=== PATIENT | female | born 1985 ===

== ENCOUNTER 2016-05-31 08:35 | Inpatient (IN) ==
[2016-05-31] MEDS ORDERED: CITRIC ACID/SODIUM CITRATE 30 ML UDCUP PO ONE (09:08)
[2016-05-31] MEDS ORDERED: ceFAZolin 2,000 MG in PREMIX 1 EACH IV ONE (09:08)
[2016-05-31] MEDS ORDERED: FAMOTIDINE 20 MG/2 ML VIAL IV ONE (09:08)
[2016-05-31] MEDS ORDERED: LACTATED RINGERS 1,000 ML IV ONE (09:12)
[2016-05-31] MEDS ORDERED: OXYTOCIN 10 UNIT/ML VIAL IM ONE (09:13)
[2016-05-31] MEDS ORDERED: OXYTOCIN/LR 30 UNIT/1,000 ML BAG IV ONE (09:14)
[2016-05-31 09:21] LABS: Apearance,Urine Slightly Hazy (Clear); Bilirubin,Urine Negative (Negative); Blood, Urine Negative (Negative); Glucose,Urine (UA) Negative (Negative); Ketones,Urine 5 mg/dL (Negative); Mucus,Urine Many /LPF (Occasional); Nitrite,Urine Negative (Negative); Protein,Urine 30 MG/DL; RBC,Urine 1 /HPF (0-4); Squamous Epithelial Cell,Urine Occasional /HPF (0-10); Urine Color Yellow (Yellow); Urine Specific Gravity 1.025 (1.001-1.035); Urine Urobilinogen < 2.0 EU/DL (0.2-1.0); WBC,Urine 1 /HPF (0-6)
[2016-05-31] MEDS ORDERED: LACTATED RINGERS 1,000 ML IV SCH ×2 (09:30→14:30)
[2016-05-31 09:34] LABS: Basophils % 0.2 % (0.0-0.8); Eosinophils % 0.3 % (0.00-10.9); Hematocrit 38.6 VOL% (35.7-47.0); Immature Granulocytes % 0.5 %; Immature Granulocytes Absolute 0.03 #; Lymphocytes # 1.3 10*3/uL (1.4-4.0); Lymphocytes % 20.8 % (21.3-54.2); Mean Corpuscular HGB Conc 33.7 GM/DL (32-36); Mean Corpuscular Hemoglobin 32 PG (27-34); Mean Corpuscular Volume 95.3 FL (87-102); Mean Platelet Volume 12.6 FL (9.6-12.0); Monocytes # 0.5 10*3/uL (0.11-0.8); Neutrophils # 4.5 10*3/uL (1.4-7.4); Neutrophils % 70.2 % (38.7-73.9); Platelet Count 147 10*3/uL (130-400); Red Blood Count 4.05 10*6/uL (3.8-5.5); Red Cell Distribution Width 12.9 % (9.3-17.3); White Blood Count 6.3 10*3/uL (4.5-13.71)
[2016-05-31] MEDS ORDERED: INFLUENZA VIRUS VACCINE 0.5 ML SYRINGE IM ONE (10:00)
[2016-05-31 10:15] LABS: Alanine Aminotransferase 17 U/L (13-56); Albumin 2.6 G/DL (3.4-5.0); Alkaline Phosphatase 160 U/L (45-117); Aspartate Amino Transferase 21 U/L (0-37); Bilirubin,Total < 0.39 MG/DL (0.2-1.0); Blood Urea Nitrogen 8 MG/DL (7-18); Calcium 8.8 MG/DL (8.5-10.1); Glucose 109 MG/DL (74-106); Osmolality,Calculated 284.8 MOS/KG (273-304); Potassium 4.3 MMOL/L (3.5-5.1); Sodium 144 MMOL/L (136-145); Total Protein 6.4 G/DL (6.4-8.3)
[2016-05-31] MEDS ORDERED: ONDANSETRON 4 MG/2 ML VIAL ONE (12:35)
[2016-05-31] MEDS ORDERED: PHENYLEPHRINE 1 MG/10 ML SYRINGE IV ONE (12:35)
[2016-05-31] MEDS ORDERED: fentaNYL 100 MCG/2 ML VIAL ONE (13:33)
[2016-05-31] MEDS ORDERED: ePHEDrine 50 MG/ML AMP ONE (13:34)
[2016-05-31] MEDS ORDERED: MORPHINE 10 MG/10 ML VIAL ONE (13:34)
[2016-05-31 13:39] LABS: Cord Arterial Blood HCO3 20.6 MMOL/L
[2016-05-31 13:41] LABS: Cord Venous Blood HCO3 22.2 MMOL/L; Cord Venous Blood PCO2 51.6 MMHG; Cord Venous Blood PO2 27.3
--- NOTE | 2016-05-31 14:21 | OB/GYN History & Physical ---
History of Present Illness Chief complaint: 38 weeks and 5 days questionable rupture membranes, pelvic pain History of present illness: Ms. Werner is a 30 year old female 6 para 3 living 2 with one patient presents with questionable leaking of fluid irregular uterine contraction and lower pelvic pain. This patient is also previous section 2. On admission heart tones were category 1, there was no evidence of any leaking. She was examined in the office prior to the hospitalization today for the same similar problems. In light of these findings with the lower pelvic pain and questionable ruptured we'll admit this patient and perform a repeat section 3. Home Medications Medication Instructions Recorded Confirmed Type No Known Home Medications [No 05/31/16 05/31/16 History Known Home Medications] Allergies Allergy/AdvReac Type Severity Reaction Status Date / Time No Known Allergies Allergy Verified 05/31/16 09:08 Medical,Surgical,& Family Hx - Medical History Neurology: History of: Seizures ( PT DOES NOT REMEMBER BEIING MEDS) Reproductive: History of: Abnormal Pap Smear, Ovarian Cysts - Surgical History Reproductive Surgeries: Surgical HX of;: Section (X2), Dilation and Curettage (X1) - Family History Family History: Reports;: Family Cancer (GF), Family Diabetes (GRANDPARENTS), Family Hypertension (PARENTS GRANDPARENTS), Family Stroke (GRANDPARENTS) Denies;: Family Anesthesia Reaction, Family Heart Disease, Family Hematology , Family Psychiatric Problems - Social History Smoking Status: Never smoker Frequency of Alcohol Use: None 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 - Constitutional General appearance: mild distress - Antepartum / Post Antpartum Exam Cervix -Dilatation: 1 cm, positive vaginal discharge, -3 station - Head Head exam: Present: normal inspection - Eye Eye exam: Present: EOMI Pupils: Present: JANNETTE - ENT ENT exam: Present: normal exam - Neck Neck exam: Present: normal inspection - Respiratory Respiratory exam: Present: clear to auscultation bilaterally - Breast Breasts: as per HPI Menstruation: as per HPI - Cardiovascular Cardiovascular exam: Present: regular rate and rhythm - GI/Abdominal GI/Abdominal exam: Present: normal bowel sounds - Extremities Exam Extremities exam: Present: normal inspection - Back Exam Back exam: Present: normal inspection - Neurological Exam Neurological exam: Present: alert, oriented X3 - Psychiatric Psychiatric exam: Present: normal affect - Skin Skin exam: Present: normal color Assessment and Plan (1) Premature rupture of membranes (PROM) affecting sixth Status: Acute Assessment and plan: Previous section, 38 weeks and 5 days, with questionable rupture membranes, with pelvic pain. Plan on a repeat section elective sterilization. Current Visit: Yes Results - Labs CBC & BMP: 05/31/16 09:31 05/31/16 Unknown
[2016-05-31] MEDS ORDERED: ACETAMINOPHEN 325 MG TABLET PO PRN (14:24)
[2016-05-31] MEDS ORDERED: MAGNESIUM HYDROXIDE SUSP 30 ML UDCUP PO PRN (14:24)
[2016-05-31] MEDS ORDERED: IBUPROFEN 800 MG TABLET PO PRN (14:24)
[2016-05-31] MEDS ORDERED: OXYTOCIN/LR 20 UNIT/1,000 ML BAG IV ONE (14:24)
[2016-05-31] MEDS ORDERED: ONDANSETRON 4 MG/2 ML VIAL IV PRN (14:24)
[2016-05-31] MEDS ORDERED: SIMETHICONE CHEW 80 MG TABLET PO PRN (14:24)
--- NOTE | 2016-05-31 14:28 | Operative Note ---
Date of procedure: 05/31/16 Procedure: Preoperative diagnosis: Repeat section, elective sterilization, premature rupture membranes Postoperative diagnosis: Same Anesthesia:[] Regional anesthesia Estimated blood loss: []300 mL Surgeon: Dr. Ames Findings: []Live female, 1300 hours the fetus was born, the weight was 8 lbs. 12 oz., Apgars was 9 at 1 minute and 9 at 5 minutes Complications: None Procedure: Low transverse section, bilateral tubal ligation The patient was taken to the operating suite heart tones were obtained prior to and after regional anesthesia was obtained. She was placed in supine position her abdomen was prepped and draped in usual manner for major abdominal surgery. Through an abdominal incision the skin, subcutaneous, fascial layer and peritoneal the abdomen was entered. The bladder flap was created and a low transverse incision was made.. Fluid was clear and normal amount X, Apgars, the placenta was delivered and sent to lab for further evaluation. Injected with intrauterine Pitocin. The first layer of the uterus was closed with #1 Vicryl in a continuous locking manner. Close to imbricate the first layer with #1 Vicryl. The peritoneum was approximated with #2-0 Vicryl.[ Fallopian tubes were grasped with a Quoc clamp, today best reason mesal salpinx was perforated, proximal and distal end of the tube was ligated, cut is within cauterized.] All the last sponges and instruments were accounted for 2.) #2-0 Vicryl. Fascia was approximated with #0-0 Maxon.. The skin was approximated with jam. She tolerated procedure well and was taken to recovery room in stable condition. Surgeon / Physician: Herman Ames Results - Labs CBC & BMP: 05/31/16 09:31 05/31/16 Unknown Discharge Plan - Discharge Medications No Action No Known Home Medications [No Known Home Medications] - Follow Up or Referral - Forms/Instructions
[2016-05-31] MEDS ORDERED: RHO(D) IMMUNE GLOBULIN 300 MCG SYRINGE IM ONE (15:00)
[2016-05-31] MEDS ORDERED: PROMETHAZINE 25 MG/1 ML VIAL IM PRN (17:34)
[2016-05-31 21:10] LABS: Basophils % 0.2 % (0.0-0.8); Eosinophils % 0.1 % (0.00-10.9); Hematocrit 32.9 VOL% (35.7-47.0); Hemoglobin 11.4 GM/DL (12.0-16.0); Immature Granulocytes % 0.3 %; Immature Granulocytes Absolute 0.03 #; Lymphocytes # 1.5 10*3/uL (1.4-4.0); Lymphocytes % 14.4 % (21.3-54.2); Mean Corpuscular HGB Conc 34.7 GM/DL (32-36); Mean Corpuscular Hemoglobin 33 PG (27-34); Mean Corpuscular Volume 94.5 FL (87-102); Mean Platelet Volume 11.8 FL (9.6-12.0); Monocytes # 0.7 10*3/uL (0.11-0.8); Monocytes % 7.2 % (1.7-12.7); Neutrophils % 77.8 % (38.7-73.9); Platelet Count 131 10*3/uL (130-400); Red Blood Count 3.48 10*6/uL (3.8-5.5); Red Cell Distribution Width 12.8 % (9.3-17.3); White Blood Count 10.2 10*3/uL (4.5-13.71)
[2016-05-31] MEDS: DOCUSATE SODIUM 100 MG CAPSULE PO SCH (22:58)
[2016-06-01 06:57] LABS: Basophils % 0.1 % (0.0-0.8); Eosinophils % 0.1 % (0.00-10.9); Hematocrit 34.3 VOL% (35.7-47.0); Hemoglobin 11.6 GM/DL (12.0-16.0); Immature Granulocytes % 0.5 %; Immature Granulocytes Absolute 0.04 #; Lymphocytes # 1.1 10*3/uL (1.4-4.0); Lymphocytes % 13.9 % (21.3-54.2); Mean Corpuscular HGB Conc 33.8 GM/DL (32-36); Mean Corpuscular Hemoglobin 32 PG (27-34); Mean Corpuscular Volume 95.5 FL (87-102); Mean Platelet Volume 12.1 FL (9.6-12.0); Monocytes # 0.6 10*3/uL (0.11-0.8); Monocytes % 7.1 % (1.7-12.7); Neutrophils # 6.4 10*3/uL (1.4-7.4); Neutrophils % 78.3 % (38.7-73.9); Platelet Count 133 10*3/uL (130-400); Red Blood Count 3.59 10*6/uL (3.8-5.5); White Blood Count 8.2 10*3/uL (4.5-13.71)
--- NOTE | 2016-06-01 08:17 | Anesthesia ---
Anesthesia Post OP - Post Ansesthetic Evaluation Patient seen in post op: Yes Resp: within normal limits CV: within normal limits Mental: within normal limits Temp: within normal limits [id number]: within normal limits Nausea and Vomiting: within normal limits Pain: within normal limits
[2016-06-01] MEDS: DOCUSATE SODIUM 100 MG CAPSULE PO SCH ×2 (08:45→22:20)
[2016-06-01] MEDS ORDERED: MULTIVITAMIN (PRENATAL) TABLET PO SCH (09:00)
--- NOTE | 2016-06-01 11:22 | OB/GYN Progress Note ---
Assessment and Plan (1) Premature rupture of membranes (PROM) affecting sixth Status: Acute Assessment and plan: Previous section, 38 weeks and 5 days, with questionable rupture membranes, with pelvic pain. Plan on a repeat section elective sterilization. 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 Patient's postoperative day # 1. She is ambulating well, voiding well, no excessive drainage from her incision. Extremities a well within normal limits neurologically grossly intact. Patient will continue with routine postoperative care possible discharge in a.m. 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
--- NOTE | 2016-06-01 11:23 | Pathology Report from [facility] ---
ACCESSION # : [id number] PATIENT NAME : Sary Werner ORDERING DR : WILBERTO PHAM MD CLINICAL HX: IUP @ 38.5/7 weeks - Repeat with spontaneous rupture of membranes - Elective sterilization POST-OP DX: Same SPECIMEN INFO: #1 Right fallopian tube #2 Left fallopian tube GROSS DESCRIPTION: #1 Received fresh labeled with the patient's name "SARY WERNER and RT SEG FALLOPIAN TUBE" consists of a pink-de leon segment of unfimbriated fallopian tube measuring 3.4 x 0.5 cm. A quality audit representative section submitted in cassette #1.#2 Received fresh labeled with the patient's name "SARY WERNER and LT SEG FALLOPIAN TUBE" consists of a pink-de leon segment of unfimbriated fallopian tube measuring 2.0 x 0.5 cm. A quality audit representative section submitted in cassette #2. DIAGNOSIS FOR SARY WERNER: #1 Completely transected fallopian tube, right.# 2 Completely transected fallopian tube, left. SERVICE DATE: 05/31/2016 REPORT DATE: 06/01/2016 PATHOLOGIST: Adelso Johnson M.D. [facility]US[facility]
--- NOTE | 2016-06-01 11:24 | Discharge Summary ---
Hospital Course - Hospital Course Hospital Course: Postop day #2 Status post section Lungs clear, cardiac exam benign, abdomen is well within normal limits incision sites intact. Extremities a well with no limits and neurologically grossly intact We'll discharged on the seventh iand follow-up in our office approximately 2 weeks Diagnosis - Discharge Diagnosis (1) Premature rupture of membranes (PROM) affecting sixth Status: Acute Specialty Discharge - Follow Up or Referrals - Discharge Medications No Action No Known Home Medications [No Known Home Medications] Discharge Plan - Discharge Data Condition at Discharge: Stable Discharge Diet: advance to your usual diet Activity: increase activity as tolerated Hygiene: may shower Weight Bearing at Discharge: full weight bearing Driving: not until seen by doctor Contact your physician if you experience:: fever over 101, Shortness of breath, Bleeding - Discharge Medications New HYDROcodone/ACETAMIN 5-325 [[place] 5-325] 2 tablet PO Q6H PRN #40 tablet PRN Reason: Pain Severe (8-10) Ibuprofen Tab [Motrin Tab] 800 mg PO Q8H PRN #60 tablet PRN Reason: Pain Severe (8-10) - Follow Up or Referral - Forms/Instructions Exam - Constitutional Vitals: Period Temp Pulse Resp BP Sys/Yap Pulse Ox Last 24 Hr 97.5 F-98.6 F 74-95 18-20 96-141/51-92 93-99 Discharge Results Labs on day of discharge: Labs from last 24 hours 06/01/16 05/31/16 05/31/16 06:43 21:05 13:00 WBC 8.2 10.2 D RBC 3.59 L 3.48 L Hgb 11.6 L 11.4 L Hct 34.3 L 32.9 L MCV 95.5 94.5 MCH 32 33 MCHC 33.8 34.7 RDW 13.0 12.8 Plt Count 133 131 MPV 12.1 H 11.8 Neut % (Auto) 78.3 H 77.8 H Lymph % (Auto) 13.9 L 14.4 L Traill % (Auto) 7.1 7.2 Eos % (Auto) 0.1 0.1 Baso % (Auto) 0.1 0.2 Neut # (Auto) 6.4 8.0 H Lymph # (Auto) 1.1 L 1.5 Traill # (Auto) 0.6 0.7 Eos # (Auto) 0.0 0.0 Baso # (Auto) 0.0 0.0 Immature Gran % 0.5 0.3 Nucleated RBC % 0.0 0.0 Immature Gran # 0.04 0.03 Nucleated RBCs # 0.00 0.00 Cord ABG pH Cord ABG pCO2 Cord ABG pO2 Cord ABG HCO3 Cord ABG Total CO2 Cord ABG Base Excess Cord VBG pH 7.308 Cord VBG pCO2 51.6 Cord VBG pO2 27.3 Cord VBG HCO3 22.2 Cord VBG Total CO2 22.7 Cord VBG Base Excess -1.5 05/31/16 13:00 WBC RBC Hgb Hct MCV MCH MCHC RDW Plt Count MPV Neut % (Auto) Lymph % (Auto) Traill % (Auto) Eos % (Auto) Baso % (Auto) Neut # (Auto) Lymph # (Auto) Traill # (Auto) Eos # (Auto) Baso # (Auto) Immature Gran % Nucleated RBC % Immature Gran # Nucleated RBCs # Cord ABG pH 7.188 L Cord ABG pCO2 76.1 Cord ABG pO2 17.7 Cord ABG HCO3 20.6 Cord ABG Total CO2 26.3 Cord ABG Base Excess -2.5 Cord VBG pH Cord VBG pCO2 Cord VBG pO2 Cord VBG HCO3 Cord VBG Total CO2 Cord VBG Base Excess DS: Provider Date of admission: 05/31/16 08:35 Primary care physician: Macrina Shaw MD Attending physician on admission: Herman Ames MD Consults: 05/31/16 09:08 Consult to Anesthesiology [CONS] Routine Consulting Provider: Reason for Anesthesiology: Pre-op Clearance 05/31/16 14:24 Consult to Clinical Data Analyst [CONS] Routine Consult Clinical Data Analyst: Breast Feeding 06/01/16 09:14 Consult to Dietitian [CONS] Routine Reason for Dietitian: Dietary Consult Discharging clinician: Herman Ames MD
[2016-06-02 07:37] VITALS: BP 145/80
--- NOTE | 2016-06-02 10:27 | OB/GYN Progress Note ---
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 Ready to go home Exam SHAKER TENDER - Constitutional Vitals: Vital Signs Temp Pulse Resp BP Pulse Ox 06/02/16 07:32 97.6 F 86 20 145/80 98 06/02/16 04:00 98 F 67 18 110/76 99 06/02/16 02:00 18 06/02/16 00:00 97.7 F 79 18 109/61 99 06/01/16 20:00 97.8 F 92 H 18 115/63 95 06/01/16 16:00 98.5 F 86 20 120/64 98 06/01/16 11:14 98.2 F 85 20 127/72 97 General appearance: no acute distress, morbidly obese - Head Head exam: Present: normocephalic - Eye Eye exam: Present: EOMI - GI/Abdominal GI/Abdominal exam: Present: other (Incision intact) Results - Labs CBC & BMP: 06/01/16 06:43 05/31/16 Unknown
== END 2016-06-02 11:10 | disposition home or self-care (01) | DRG 766 ==
LOC: N.LD 08:35 → N.OB 15:08
PROVIDERS: ADMIT Obstetrics & Gynecology; ATTEND Obstetrics & Gynecology